=== PATIENT | male | born 1960 | race Caucasian/White ===

== ENCOUNTER 2019-05-11 22:41 | Emergency (ER) | payer SELFPAY ==
[~2019-05-11] VITALS: Ht 175.3 cm; Wt 81.6 kg
[~2019-05-11 22:41] MED LIST: RANI-376 PO
[2019-05-12 00:30] LABS: BILIRUBIN,URINE NEGATIVE (NEG); CLARITY,URINE CLEAR; COLOR,URINE YELLOW; NITRITE,URINE NEGATIVE (NEG); PROTEIN,URINE NEGATIVE (NEG-TRACE); UROBILINOGEN,URINE 0.2 mg/dL (0.2 mg/dL)
[2019-05-12 00:34] LABS: BACTERIA,URINE 0 /HPF (0-FEW); HYALINE CASTS, URINE OCCASIONAL /HPF; RBC,URINE OCC /HPF (0-2); SQUAMOUS EPITHELIAL CELL,UR OCC /LPF; WBC,URINE RARE /HPF (0-4)
[2019-05-12] MEDS ORDERED: ONDANSETRON PF 4 MG/2 ML VIAL. IV ONE (01:00)
[2019-05-12] MEDS ORDERED: FAMOTIDINE 20 MG/2 ML VIAL IVP ONE (01:00)
[2019-05-12] MEDS ORDERED: IV NORMAL SALINE 1000ML BAG 1,000 ML IV ONE (01:00)
[2019-05-12] MEDS ORDERED: KETOROLAC 15 MG/ML VIAL. IV ONE (01:00)
[2019-05-12] MEDS ORDERED: LIDO:MAALOX 1:1 20 ML SINGLE DOSE. PO ONE (01:30)
[2019-05-12] MEDS ORDERED: FAMO-63 PO (01:43)
--- NOTE | 2019-05-12 01:44 | PHYS DOC ---
Past Medical History Past Medical History: Hypertension, [place] Past Surgical History: Other Additional Past Surgical Histo: 2 STENTS Alcohol Use: None Drug Use: None Adult General Chief Complaint Chief Complaint: ABDOMINAL PAIN HPI HPI Patient is a 59 year old male with hx of GERD who presents with abdominal pain. Pt reports having abdominal around 4-5pm yesterday (05/11/2019). He experience throat burning sensation upon lying flat and decided to take ranitidine and tumbs around 9pm. However, the pain did not go ago. In the ED, he was able to pass gas and felt better. The abdominal pain is gone at the time of assessment. He had a similar episode last year when he was diagnosed with GERD and has been on ranitidine since then. Denies any N/V, chest pain, SOB, palpitation, hematochezia, constipation, diarrhea. Review of Systems Review of Systems Constitutional: Denies fever or chills Eyes: Denies redness or eye pain HENT: Denies nasal congestion or sore throat Respiratory: Denies cough or shortness of breath Cardiovascular: Denies chest pain or palpitations GI: Denies abdominal pain, nausea, or vomiting : Denies dysuria or hematuria Musculoskeletal: Denies back pain or joint pain Integument: Denies rash or skin lesions Neurologic: Denies headache, focal weakness or sensory changes Complete systems were reviewed and found to be within normal limits, except as documented in this note. Current Medications Current Medications Current Medications Medications (Trade) Dose Ordered Sig/Nu Start Time Stop Time Status Last Admin Dose Admin Famotidine (Pepcid Vial) 20 mg 1X ONCE 05/12/19 01:00 05/12/19 01:01 DC Ketorolac Tromethamine (Toradol 15mg Vial) 15 mg 1X ONCE 05/12/19 01:00 05/12/19 01:01 DC Multi-Ingredient Mouthwash/Gargle (Gi Cocktail) 20 ml 1X ONCE 05/12/19 01:30 05/12/19 01:31 DC 05/12/19 01:16 20 ML Ondansetron HCl (Zofran) 4 mg 1X ONCE 05/12/19 01:00 05/12/19 01:01 DC Sodium Chloride 1,000 ml @ 1,000 mls/hr 1X ONCE 05/12/19 01:00 05/12/19 01:59 DC Allergies Allergies Allergies Coded Allergies Type Severity Reaction Last Updated Verified No Known Drug Allergies 08/18/18 No Physical Exam Physical Exam Constitutional: Well developed, well nourished, no acute distress, non-toxic appearance HENT: Normocephalic, atraumatic, oropharynx moist Eyes: PERRL, EOMI, conjunctiva normal, no discharge Neck: Normal range of motion, no tenderness, supple Cardiovascular: Heart rate normal, regular rhythm Lungs & Thorax: Bilateral breath sounds clear to auscultation, no wheezing Abdomen: Soft, no tenderness Skin: Warm, dry, no erythema, no rash Back: No tenderness, no CVA tenderness Extremities: No tenderness, ROM intact, no edema Neurologic: Alert and oriented X 3, normal motor function, normal sensory function, no focal deficits noted Psychologic: Affect normal, judgement normal, mood normal Current Patient Data Vital Signs Vital Signs Date Time Temp Pulse Resp B/P (MAP) Pulse Ox O2 Delivery O2 Flow Rate FiO2 05/12/19 02:00 71 18 134/79 (97) 98 Room Air 05/11/19 23:31 98.0 98.0 Lab Values Laboratory Tests Test 05/12/19 00:15 Urine Collection Type Unknown Urine Color Yellow Urine Clarity Clear Urine pH 6.0 Urine Specific Bishop 1.020 Urine Protein Negative mg/dL (NEG-TRACE) Urine Glucose (UA) 500 mg/dL (NEG) Urine Ketones (Stick) Negative mg/dL (NEG) Urine Blood Negative (NEG) Urine Nitrite Negative (NEG) Urine Bilirubin Negative (NEG) Urine Urobilinogen Dipstick 0.2 mg/dL (0.2 mg/dL) Urine Leukocyte Esterase Negative (NEG) Urine RBC Occ /HPF (0-2) Urine WBC Rare /HPF (0-4) Urine Squamous Epithelial Cells Occ /LPF Urine Bacteria 0 /HPF (0-FEW) Urine Hyaline Casts Occasional /HPF Urine Mucus Mod /LPF EKG EKG [] Radiology/Procedures Radiology/Procedures [] Course & Med Decision Making Course & Med Decision Making Pertinent Labs and Imaging studies reviewed. (See chart for details) [] Dragon Disclaimer Dragon Disclaimer This electronic medical record was generated, in whole or in part, using a voice recognition dictation system. Departure Departure Impression: Primary Impression: Epigastric abdominal pain Disposition: HOME, SELF-CARE Condition: STABLE Referrals: UNKNOWN PCP NAME (PCP) PROPECK,MELANIE S MD Patient Instructions: Abdominal Pain (Nonspecific), Gastritis, Adult, [id number] Scripts Famotidine (PEPCID) 20 Mg Tablet 20 MG PO BID, #14 TAB Prov: BARRETT FLORENTINO DO 05/12/19 BARRETT FLORENTINO DO May 12, 2019 01:44
[2019-05-12 02:00] VITALS: BP 134/79
--- NOTE | 2019-05-13 04:54 | EKG ---
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
== END 2019-05-12 02:00 | disposition home or self-care (01) ==
LOC: ER 22:41
DX: R10.13 Epigastric pain (principal); K21.9 Gastro-esophageal reflux disease without esophagitis; I10 Essential (primary) hypertension; I25.2 Old myocardial infarction; Z95.5 Presence of coronary angioplasty implant and graft
CPT/HCPCS: 81001; 93005; 99285-25

== ENCOUNTER 2021-03-24 07:42 | Emergency (ER) | payer OTHER ==
[~2021-03-24] VITALS: Ht 177.8 cm; Wt 59.2 kg
[~2021-03-24 07:42] MED LIST changes: +FAMO-63 PO
[2021-03-24] MEDS: IV NORMAL SALINE 1000ML BAG 1,000 ML IV ONE ×2 (08:16→11:53)
[2021-03-24 08:22] LABS: BASO % 0 % (0-3); EOS % 0 % (0-3); HEMATOCRIT 45.1 % (39.0-53.0); HEMOGLOBIN 15.2 g/dL (13.0-17.5); LYMPH # 1.2 x10^3/uL (1.0-4.8); LYMPH % 11 % (24-48); MEAN CORPUSCULAR HEMOGLOBIN 30 pg (25-35); MEAN CORPUSCULAR HGB CONC 34 g/dL (31-37); MEAN CORPUSCULAR VOLUME 90 fL (79-100); MONO # 0.7 x10^3/uL (0.0-1.1); MONO % 6 % (0-9); NEUT # 9.4 x10^3/uL (1.8-7.7); NEUT % 83 % (31-73); PLATELET COUNT 255 x10^3/uL (140-400); RED BLOOD COUNT 5.02 x10^6/uL (4.30-5.70); RED CELL DISTRIBUTION WIDTH 12.8 % (11.5-14.5); WHITE BLOOD COUNT 11.4 x10^3/uL (4.0-11.0)
--- NOTE | 2021-03-24 08:32 | PHYS DOC ---
Past Medical History Past Medical History: CAD, Hypertension, [place] Additional Past Medical Histor: CHRONIC BACK PAIN,CARDIAC ARREST/CARDIAC STENTS X 2 Past Surgical History: Angioplasty, Other Additional Past Surgical Histo: CARDIAC STENTS Smoking Status: Former Smoker Alcohol Use: None Drug Use: None General Adult EDM: Chief Complaint: ABNORMAL LABS HPI: HPI: Patient is a 61 year old male who was sent here from home for evaluation of elevated blood sugar. Patient with having chronic low back pain and some lower abdominal pain so he went to see his physician yesterday. His doctor did some lab work and last night I called him to come to the ER because his blood sugar was over 700. Patient denies any history of diabetic. Patient denies any chest pain, no cough, no fever. Patient did not vaccinated for COVID-19. Patient denies any cough or fever, no nausea vomiting, patient denies any chest pain, no trouble breathing. Review of Systems: Review of Systems: Constitutional: Denies fever or chills. [] Eyes: Denies change in visual acuity. [] HENT: Denies nasal congestion or sore throat. [] Respiratory: Denies cough or shortness of breath. [] Cardiovascular: Denies chest pain or edema. [] GI: Positive for abdominal pain, no nausea vomiting, no diarrhea : Denies dysuria. [] Musculoskeletal: Positive for back pain, no shoulder pain Integument: Denies rash. [] Neurologic: Denies headache, focal weakness or sensory changes. [] Endocrine: Denies polyuria or polydipsia. [] Lymphatic: Denies swollen glands. [] Psychiatric: Denies depression or anxiety. [] Heart Score: C/O Chest Pain: N/A Risk Factors: Risk Factors: DM, Current or recent (<one month) smoker, HTN, HLP, family history of CAD, obesity. Risk Scores: Score 0 - 3: 2.5% MACE over next 6 weeks - Discharge Home Score 4 - 6: 20.3% MACE over next 6 weeks - Admit for Clinical Observation Score 7 - 10: 72.7% MACE over next 6 weeks - Early Invasive Strategies Current Medications: Current Medications Medications (Trade) Dose Ordered Sig/Nu Start Time Stop Time Status Last Admin Dose Admin Sodium Chloride 1,000 ml @ 1,000 mls/hr 1X ONCE 03/24/21 08:00 03/24/21 08:59 03/24/21 08:16 1,000 MLS/HR Allergies: Allergies: Allergies Coded Allergies Type Severity Reaction Last Updated Verified No Known Drug Allergies 08/18/18 No Physical Exam: PE: Constitutional: Well developed, well nourished, no acute distress, non-toxic appearance. [] HENT: Normocephalic, atraumatic, bilateral external ears normal, oropharynx moist, no oral exudates, nose normal. [] Eyes: PERRLA, EOMI, conjunctiva normal, no discharge. [] Neck: Normal range of motion, no tenderness, supple, no stridor. [] Cardiovascular: Sinus tachycardia, regular rhythm, no murmur [] Lungs & Thorax: Bilateral breath sounds clear to auscultation [] Abdomen: Bowel sounds normal, soft, no tenderness, no masses, no pulsatile masses. [] Skin: Warm, dry, no erythema, no rash. [] Back: No tenderness, no CVA tenderness. [] Extremities: No tenderness, no cyanosis, no clubbing, ROM intact, no edema. [] Neurologic: Alert and oriented X 3, normal motor function, normal sensory function, no focal deficits noted. [] Psychologic: Affect normal, judgement normal, mood normal. [] Current Patient Data: Labs: Laboratory Tests Test 03/24/21 07:59 White Blood Count 11.4 x10^3/uL (4.0-11.0) H Red Blood Count 5.02 x10^6/uL (4.30-5.70) Hemoglobin 15.2 g/dL (13.0-17.5) Hematocrit 45.1 % (39.0-53.0) Mean Corpuscular Volume 90 fL (79-100) Mean Corpuscular Hemoglobin 30 pg (25-35) Mean Corpuscular Hemoglobin Concent 34 g/dL (31-37) Red Cell Distribution Width 12.8 % (11.5-14.5) Platelet Count 255 x10^3/uL (140-400) Neutrophils (%) (Auto) 83 % (31-73) H Lymphocytes (%) (Auto) 11 % (24-48) L Monocytes (%) (Auto) 6 % (0-9) Eosinophils (%) (Auto) 0 % (0-3) Basophils (%) (Auto) 0 % (0-3) Neutrophils # (Auto) 9.4 x10^3/uL (1.8-7.7) H Lymphocytes # (Auto) 1.2 x10^3/uL (1.0-4.8) Monocytes # (Auto) 0.7 x10^3/uL (0.0-1.1) Eosinophils # (Auto) 0.0 x10^3/uL (0.0-0.7) Basophils # (Auto) 0.0 x10^3/uL (0.0-0.2) Laboratory Tests 03/24/21 07:59 Vital Signs: Vital Signs Date Time Temp Pulse Resp B/P (MAP) Pulse Ox O2 Delivery O2 Flow Rate FiO2 03/24/21 07:48 98.6 135 20 144/90 (97) 97 Room Air 98.6 EKG: EKG: [EKG was done at 806, heart rate 125 bpm, sinus tachycardia, no ST segment elevation. Radiology/Procedures: Radiology/Procedures: [facility] [address] [place] [address] IMAGING REPORT Signed PATIENT: GREG WOODS ACCOUNT: [id number] : 1960 LOCATION: ER AGE: 61 SEX: M EXAM STATUS: REG ER ORD. PHYSICIAN: CARYN DSOUZA DO REASON: LOWER ABDOMINAL PAIN PROCEDURE: CT ABD PELV W/ IV CONTRST ONLY EXAM: Abdomen and pelvis CT with intravenous contrast. HISTORY: Pain. TECHNIQUE: Computed tomographic images of the abdomen and pelvis were obtained following the administration of intravenous contrast. Multiplanar reformatting was performed. *One or more of the following individualized dose reduction techniques were utilized for this examination: 1. Automated exposure control. 2. Adjustment of the mA and/or kV according to patient size. 3. Use of iterative reconstruction technique. COMPARISON: None. FINDINGS: Evaluation of the lower thorax demonstrates nodular groundglass in filtrate within the right lower lobe. There is bilateral posterior dependent atelectasis. There is medial right middle lobe and lingular linear scarring. There is no consolidation or pleural effusion. The heart is normal in size. There is hepatic steatosis. There is cholelithiasis. The pancreas is unremarkable. There are splenic granulomas. The spleen is normal in size. The adrenal glands are unremarkable. There are small simple appearing renal cysts. Follow-up is not routinely performed for simple cysts. There is a 9 mm partially exophytic lesion within the upper pole of the left kidney which is slightly hyperdense and may be solid in etiology. There is no hydronephrosis. There is no appendicitis. There is moderate colonic stool. There is no bowel obstruction. The bladder is unremarkable. There is a prominent prostate. The aorta is normal in caliber. There is no lymphadenopathy. There is no acute or suspicious osseous lesion. IMPRESSION: 1. No acute abdominal or pelvic finding. 2. Hepatic steatosis. 3. Cholelithiasis. 4. Nodular groundglass infiltrate within the right lower lobe due to suspected pneumonia/pneumonitis. 5. 9 mm lesion within the upper pole of the left kidney. This may be a solid neoplasm or hemorrhagic cyst. This may be too small to characterize sonographically. Renal protocol CT or MRI can be performed for characterization. There are additional simple appearing lateral renal cysts. Electronically signed by: Rhonda Cadena MD (03/24/2021 10:32 AM) [id number] DICTATED and SIGNED BY: RHONDA CADENA MD DATE: 03/24/21 [id number] 0 Course & Med Decision Making: Course & Med Decision Making Pertinent Labs and Imaging studies reviewed. (See chart for details) Patient is a 61-year-old male who present to ER due to elevated blood sugar. Patient was given IV fluid, insulin in ER, his blood sugar was improved. Patient will be discharged home with prescription for Metformin. 500 mg twice a day. Patient will need to follow-up with his doctor this week for reevaluation Harjit Disclaimer: Harjit Disclaimer: This electronic medical record was generated, in whole or in part, using a voice recognition dictation system. Departure Departure Impression: Primary Impression: Hyperglycemia Additional Impression: Gallstones Disposition: 01 HOME / SELF CARE / HOMELESS Condition: IMPROVED Referrals: UNKNOWN PCP NAME (PCP) Please follow up with [facility] this week. [address], [address] [place] [address] Phone number: [phone] Patient Instructions: Hyperglycemia Additional Instructions: Thank you for visiting our Emergency Department. We appreciate you trusting us with your care. If any additional problems come up don't hesitate to return to visit us. Please follow up with your primary care provider so they can plan additional care if needed and know about the problem that you had. If symptoms worsen come back to the Emergency Department. Any concerning symptoms that start such as chest pain, shortness of air, weakness or numbness on one side of the body, running high fevers or any other concerning symptoms return to the ER. Scripts Metformin Hcl (METFORMIN HCL) 500 Mg Tablet 500 MG PO BIDWMEALS for ANTI-DIABETIC for 30 Days, #60 TAB 0 Refills Prov: CARYN DSOUZA DO 03/24/21 CARYN DSOUZA DO Mar 24, 2021 08:32
[2021-03-24 08:37] LABS: BILIRUBIN,URINE NEGATIVE (NEG); CLARITY,URINE CLEAR; COLOR,URINE YELLOW; NITRITE,URINE NEGATIVE (NEG); PH,URINE 5.5 (<5.0-8.0); PROTEIN,URINE NEGATIVE (NEG-TRACE); UROBILINOGEN,URINE 0.2 mg/dL (0.2 mg/dL)
[2021-03-24 08:42] LABS: BACTERIA,URINE 0 /HPF (0-FEW); RBC,URINE 0 /HPF (0-2); WBC,URINE OCC /HPF (0-4)
[2021-03-24 08:44] LABS: CALCIUM 9.7 mg/dL (8.5-10.1); CREATININE 0.9 mg/dL (0.7-1.3); GFR 85.8; POTASSIUM 4.1 mmol/L (3.5-5.1)
[2021-03-24 08:50] LABS: ALBUMIN/GLOBULIN RATIO 1.1 (1.0-1.7); MAGNESIUM 1.9 mg/dL (1.8-2.4); TOTAL BILIRUBIN 0.8 mg/dL (0.2-1.0); TOTAL PROTEIN 7.7 g/dL (6.4-8.2)
--- NOTE | 2021-03-24 09:26 | EKG ---
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
[2021-03-24] MEDS: IOHEXOL 300 MG/ML 100ML VIAL. IV ONE (09:30)
[2021-03-24] MEDS ORDERED: CONTRAST GIVEN. MC PRN (09:30)
[2021-03-24] MEDS: INSULIN REGULAR 100 UNIT/ML 3ML VIAL. IV ONE (09:48)
--- NOTE | 2021-03-24 10:35 | RAD ---
EXAM: Abdomen and pelvis CT with intravenous contrast. HISTORY: Pain. TECHNIQUE: Computed tomographic images of the abdomen and pelvis were obtained following the administ ration of intravenous contrast. Multiplanar reformatting was performed. *One or more of the following individualized dose reduction techniques were utilized for this examina tion: 1. Automated exposure control. 2. Adjustment of the mA and/or kV according to patient size. 3. Use of iterative reconstruction technique. COMPARISON: None. FINDINGS: Evaluation of the lower thorax demonstrates nodular groundglass infiltrate within the right lower lobe. There is bilateral posterior dependent atelectasis. There is medial right middle lobe an d lingular linear scarring. There is no consolidation or pleural effusion. The heart is normal in siz e. There is hepatic steatosis. There is cholelithiasis. The pancreas is unremarkable. There are splenic granulomas. The spleen is normal in size. The adrenal glands are unremarkable. There are small simple appearing renal cysts. Follow-up is not routinely performed for simple cysts. There is a 9 mm partia lly exophytic lesion within the upper pole of the left kidney which is slightly hyperdense and may be solid in etiology. There is no hydronephrosis. There is no appendicitis. There is moderate colonic stool. There is no bowel obstruction. The bladder is unremarkable. There is a prominent prostate. The aorta is normal in caliber. There is no lymphade nopathy. There is no acute or suspicious osseous lesion. IMPRESSION: 1. No acute abdominal or pelvic finding. 2. Hepatic steatosis. 3. Cholelithiasis. 4. Nodular groundglass infiltrate within the right lower lobe due to suspected pneumonia/pneumonitis. 5. 9 mm lesion within the upper pole of the left kidney. This may be a solid neoplasm or hemorrhagic cyst. This may be too small to characterize sonographically. Renal protocol CT or MRI can be performe d for characterization. There are additional simple appearing lateral renal cysts. Electronically signed by: Rhonda Cadena MD (03/24/2021 10:32 AM) [id number]
[2021-03-24] MEDS ORDERED: METF500T16 PO (12:33)
[2021-03-24 13:07] VITALS: BP 127/80
== END 2021-03-24 13:36 | disposition home or self-care (01) ==
LOC: ER 07:42
DX: R73.9 Hyperglycemia, unspecified (principal); K80.20 Calculus of gallbladder without cholecystitis without obstruction; G89.29 Other chronic pain; M54.5 Low back pain; I10 Essential (primary) hypertension; I25.2 Old myocardial infarction; Z95.5 Presence of coronary angioplasty implant and graft; Z87.891 Personal history of nicotine dependence
CPT/HCPCS: 36415; 74177; 80053; 81001; 82010; 82962; 83735; 83880; 84484; 85025; 93005; 96361; 96374; 99285; J1815; J7030; Q9967